=== PATIENT | male | born 1980 ===

== ENCOUNTER 2020-12-26 21:57 | Emergency (ER) | payer OTHER ==
--- NOTE | 2020-12-26 23:56 | EDM.PDOC ---
ED HPI GENERAL MEDICAL PROBLEM - General Chief Complaint: Respiratory Problem Stated Complaint: COVID SYPTOMS Time Seen by Provider: 12/26/20 22:55 - History of Present Illness INITIAL COMMENTS - FREE TEXT/NARRATIVE: HISTORY AND PHYSICAL: History of present illness: This is a 40-year-old gentleman with no significant history of hypertension, diabetes, liver, lung, kidney problems, history of prediabetes, who presents ER today secondary to some abdominal discomfort with congestion and cough and concerns regarding Covid. Patient reports he did not get his Covid shot. Patient has any fevers, shakes, chills, vomiting, diarrhea, dysuria, frequency, urgency. Patient reports he is tolerating p.o. solids and liquids well. Patient reports he had a normal bowel movement earlier today. Review of systems: As per history of present illness and below otherwise all systems reviewed and negative. Past medical history: As per history of present illness and as reviewed below otherwise noncontributory. Surgical history: As per history of present illness and as reviewed below otherwise noncontributory. Social history: No reported history of drug abuse. Family history: As per history of present illness and as reviewed below otherwise noncontributory. Physical exam: This patient was seen and evaluated during the 2019 SARS-CoV-2 novel coronavirus pandemic period. Community viral transmission is ongoing at time of this encounter and the emergency department is operating under pandemic response procedures. Constitutional: Patient is oriented to person, place, and time. Appears well- developed and well-nourished. No distress. HEENT: Moist mucous membranes Head: Normocephalic and atraumatic Eyes: Right eye exhibits no discharge. Left eye exhibits no discharge. No scleral icterus Neck: Normal range of motion. No tracheal deviation present. Cardiovascular: Normal rate and regular rhythm. Pulmonary: Effort normal, no respiratory distress. Abd: Soft, nondistended, no rebound/guarding, no psoas or obturator signs, no tenderness at Mcberney's point, no Cast's sign. Pt does not present with an exam that would be consistent with an acute surgical abdomen at this time. Mild tenderness palpation of the midepigastric region. Otherwise nontender normal exam. Normal active bowel sounds Musculoskeletal: Normal range of motion Neurologic: Alert and oriented to person, place and time. Skin: [place], warm and dry. Psychiatric: Normal mood and affect. Behavior is normal. Judgment and thought content normal. Nursing note and vital signs have been reviewed Diagnostics: Chest Xray: Normal cardiac silhouette No infiltrates or effusions identified. No PTX No evidence of acute bony fracture. As interpreted by ER MD: Carmen Staley: [] Assessment and plan: 40-year-old gentleman who presents ER today with concerns regarding Covid. We have obtained a chest x-ray which is unremarkable. Patient is now wanting to wait for the Covid result so we will let him be discharged and I will call him with the results. Patient is clinically hemodynamically stable otherwise. Patient does not present with any signs or symptoms of pneumonia, hypoxia, respiratory failure, acute surgical abdomen. Reassessment at the time of disposition demonstrates that the patient is in no acute distress. The patient has remained stable throughout the entire ED visit and is without objective evidence for acute process requiring urgent intervention or hospitalization. The patient is stable for discharge, counseling is provided as documented above, discussed symptomatic treatment and specific conditions for return. I have spoken with the patient/caregiver and discussed todays findings, in addition to providing specific details for the plan of care. Questions are answered and there is agreement with the plan. Definitive disposition and diagnosis as appropriate pending reevaluation and review of above. Abdomen Pain Score (Numeric/FACES): 4 - Related Data Allergies Allergy/AdvReac Type Severity Reaction Status Date / Time No Known Allergies Allergy Verified 12/26/20 23:03 Home Meds: Home Meds Escitalopram [Lexapro] 10 mg PO DAILY 12/26/20 [History] metFORMIN HCl [Metformin HCl] 500 mg PO BID 12/26/20 [History] Past Medical History Respiratory History: Reports: Sleep Apnea Endocrine/Metabolic History: Reports: Diabetes, Type I, Obesity/BMI 30+ - Infectious Disease History Infectious Disease History: Reports: Chicken Pox Social & Family History - Tobacco Use Tobacco Use Status *Q: Never Tobacco User - Recreational Drug Use Recreational Drug Use: No ED ROS GENERAL - Review of Systems Review Of Systems: See Below ED EXAM, GENERAL - Physical Exam Exam: See Below Course - Vital Signs Last Recorded V/S: Last Vital Signs Temp 98.2 F 12/26/20 22:55 Pulse 82 12/27/20 00:04 Resp 20 12/27/20 00:04 BP 119/71 08/17/21 00:04 Pulse Ox 97 12/27/20 00:04 - Orders/Labs/Meds Labs: Laboratory Tests 12/26/20 Range/Units 23:30 SARS-CoV-2 RNA (ANUSHA) POSITIVE H (NEGATIVE) Departure - Departure Time of Disposition: 23:54 Disposition: Home, Self-Care 01 Condition: Good Clinical Impression: Viral illness - Discharge Information Instructions: Viral Illness, Adult Referrals: PCP,None [Primary Care Provider] - Forms: ED Department Discharge Additional Instructions: Your seen and evaluated in the ER today secondary to sinus symptoms that are consistent with a viral illness. Although there are 100 different viruses that can give you the symptoms, coronavirus is 1 of those viruses. Since you are wanting to leave prior to the test result, I will give you instructions and phone numbers to call in case of a call you and let you know that your test is positive. Please return to the ER if you start developing any new or concerning symptoms. Please return to the ER if you start developing any increasing shortness of breath. These follow instructions are instructions that we would give you if we call you and your test result for Covid is positive. 1. Your COVID-19 screening is not back yet. If it was positive, that means you do have the coronavirus and you are considered contagious. Your vital signs and oxygen saturation are well enough that you were able to monitor your symptoms at home. Continue to monitor for trouble breathing, new confusion or inability to arouse, bluish lips or face or any of the other symptoms we discussed -if this occurs please return to the emergency room. 2. Please self quarantine over the next 10 days. Inform any persons that you have been in contact with since you started becoming symptomatic that you have tested positive; they should be made aware and take the appropriate steps as needed. 3. You can take NyQuil during the evening to help get a restful night sleep. May alternate Tylenol and ibuprofen as needed for pain and fever management. 4. [facility] will be calling you and following up with you. The [place] COVID 19 Hotline phone number , They are open Saturday - Saturday 7am - 7pm. Follow up with your primary care provider for re-evaluation and re-testing after the 10 day quarantine and discuss when you should be seen. The following information is given to patients seen in the emergency department who are being discharged to home. This information is to outline your options for follow-up care. We provide all patients seen in our emergency department with a follow-up referral. The need for follow-up, as well as the timing and circumstances, are variable depending upon the specifics of your emergency department visit. If you don't have a primary care physician on staff, we will provide you with a referral. We always advise you to contact your personal physician following an emergency department visit to inform them of the circumstance of the visit and for follow-up with them and/or the need for any referrals to a consulting specialist. The emergency department will also refer you to a specialist when appropriate. This referral assures that you have the opportunity for follow-up care with a specialist. All of these measure are taken in an effort to provide you with optimal care, which includes your follow-up. Under all circumstances we always encourage you to contact your private physician who remains a resource for coordinating your care. When calling for follow-up care, please make the office aware that this follow-up is from your recent emergency room visit. If for any reason you are refused follow-up, please contact the [facility] Emergency Department at and asked to speak to the emergency department charge nurse. [facility] - [facility] [address] [place] [address] [id number] [facility] [address] [place] [id number] Sepsis Event Note (ED) - Evaluation Sepsis Screening Result: No Definite Risk
--- NOTE | 2020-12-27 00:02 | CR ---
HISTORY: Cough. COMPARISON: None available FINDINGS: A portable erect AP view of the chest was obtained at 23 28 hours. The lungs are clear. The heart is top normal in size. The mediastinum is normal in appearance. The osseous structures are normal in appearance for the patient`s age. IMPRESSION: Normal portable chest single view. Dictated by Johny Blair MD @ 12/27/2020 12:00:[address] Johny Blair @ Dec 27 2020 12:00AM
== END 2020-12-27 00:04 | disposition home or self-care (01) ==
LOC: MW.ED 21:57
DX: U07.1 COVID-19 (principal); B34.9 Viral infection, unspecified; E10.9 Type 1 diabetes mellitus without complications; E66.9 Obesity, unspecified; Z68.38 Body mass index [BMI] 38.0-38.9, adult
CPT/HCPCS: 71045; 71045-26; 99283; 99284-25; U0002

== ENCOUNTER 2022-03-21 02:25 | Emergency (ER) | payer OTHER ==
[2022-03-21] MEDS ORDERED: Ondansetron 4 MG/2 ML SDV IVPUSH ONE (02:42)
[2022-03-21] MEDS ORDERED: Ketorolac 30 MG/ML SDV IVPUSH ONE (02:42)
[2022-03-21] MEDS ORDERED: Lactated Ringers 1,000 ML IV ONE (02:51)
[2022-03-21] MEDS ORDERED: Morphine 4 MG/ML Syringe IVPUSH ONE ×2 (03:13→03:46)
[2022-03-21 03:16] LABS: CARBON DIOXIDE,CO2 23.7 mmol/L (21.0-32.0)
[2022-03-21] MEDS ORDERED: Iopamidol 755 MG/ML 500 ML Multipack Bottle IVPUSH STA (04:16)
[2022-03-21] MEDS ORDERED: Alum Hydro/Mag Hydro/Simeth XS 15 ML, Lidocaine 2% 5 ML PO ONE ×2 (05:17)
== END 2022-03-21 05:58 | disposition home or self-care (01) ==
LOC: MW.ED 02:25
DX: R10.13 Epigastric pain (principal); I10 Essential (primary) hypertension; E10.9 Type 1 diabetes mellitus without complications; E66.9 Obesity, unspecified; Z68.35 Body mass index [BMI] 35.0-35.9, adult; Z79.899 Other long term (current) drug therapy
CPT/HCPCS: 36415; 71045; 74177; 76705; 80053; 83690; 84484; 85025; 93005; 96361; 96374; 96375; 99284; A9270; J1885; J2270; J2405; J7120; Q9967